=== PATIENT | male | born 1975 | race Caucasian/White ===

== ENCOUNTER 2019-06-05 02:02 | Inpatient (IN) ==
[2019-06-05] MEDS ORDERED: SODIUM CHLORIDE 0.9% 1000ML 1,000 ML IV ONE (02:19)
[2019-06-05] MEDS ORDERED: ASPIRIN 81 MG CHEW PO STA (02:19)
[2019-06-05] MEDS ORDERED: fentaNYL citrate 100 MCG/2 ML VIAL IV STA (02:19)
[2019-06-05 02:37] LABS: Basophils # (auto) 0.01 K/uL (0-0.2); Basophils % (auto) 0.2 %; Eosinophils # (auto) 0.01 K/uL (0-0.5); Eosinophils % (auto) 0.2 %; Hematocrit (blood only) 43.4 % (42-52); Hemoglobin 15.8 g/dL (14.0-18.0); Immature Granulocytes # (auto) 0.02 K/uL (0.00-0.02); Immature Granulocytes % (auto) 0.3 %; Lymphocytes # (auto) 1.03 K/uL (1.2-3.4); Lymphocytes % (auto) 15.5 %; Mean Corpuscular Hemoglobin 31.2 pg (25-34); Mean Corpuscular Hgb Conc 36.4 g/dL (32-36); Mean Corpuscular Volume 85.8 fL (80-100); Mean Platelet Volume 10.2 fL (7.4-10.4); Monocytes # (auto) 0.85 K/uL (0.11-0.59); Monocytes % (auto) 12.8 %; Neutrophils # (auto) 4.72 K/uL (1.4-6.5); Platelet Count 193 K/uL (130-400); RDW Coefficient of Variation 12.7 % (11.5-14.5); RDW Standard Deviation 39.3 fL (36.4-46.3); Red Blood Count 5.06 M/uL (4.7-6.1); White Blood Count 6.64 K/uL (4.8-10.8)
[2019-06-05 02:47] LABS: Prothrombin Time 10.6 Seconds (9.0-12.0)
[2019-06-05] MEDS ORDERED: LABETALOL HCL IV 5 MG/ML 20ML IV STA (02:57)
[2019-06-05] MEDS ORDERED: LABETALOL HCL IV 5 MG/ML 20ML IV ONE (02:58)
[2019-06-05 03:03] LABS: BUN Creatinine Ratio 16.3 (10-20); Calcium 9.1 mg/dl (8.5-10.1); Creatinine Clr Calc Pharmacy 100.8 ml/min; Est GFR (African American) 94.5; Est GFR (Non-African American) 81.5; Magnesium 2.5 mg/dl (1.8-2.4); Potassium 3.4 mmol/L (3.5-5.1)
[2019-06-05 03:05] LABS: Partial Thromboplastin Ratio 1.1; Partial Thromboplastin Time 28.9 Seconds (21.0-31.0)
[2019-06-05] MEDS ORDERED: HEPARIN (PORCINE) 1000 UNIT/ML 10 ML (CATH LAB USE ONLY) ONE (03:05)
[2019-06-05] MEDS ORDERED: NiCARDipine HCL INJ 2.5 MG/ML 10 ML AMP ONE (03:05)
[2019-06-05] MEDS ORDERED: NITROGLYCERIN/D5W 100MCG/ML 20ML SYR ONE (03:06)
[2019-06-05] MEDS ORDERED: fentaNYL citrate 100 MCG/2 ML VIAL ONE (03:06)
[2019-06-05] MEDS ORDERED: MIDAZOLAM HCL 1 MG/ML 2ML VIAL ONE (03:06)
[2019-06-05 03:10] LABS: D Dimer 890 ug/L FEU (0-500)
--- NOTE | 2019-06-05 04:02 | Cardiology Consultation ---
Date of Consultation June 05, 2019 Assessment & Plan (1) Elevated troponin: Patient here with 24 hours of persistent chest pain preceded by viral symptoms. EKG most consistent with pericarditis but troponin significantly elevated to 58 raising concern for myopericarditis versus ACS. We will plan to proceed with cardiac catheterization to rule out obstructive CAD. Discussed risk, benefits, alternatives of procedure with patient and willing to proceed. Further recommendations pending findings of catheterization. History of Present Illness Attending Physician: Rocky Garcia MD History of Present Illness Mr. Martinez is a 44-year-old man with no significant past medical history who presented to [facility] with approximately 24 hours of substernal chest pain. Pain was preceded by 2 days of URI/"flu" symptoms which have since improved. Pain persistent, unchanged over 24 hours. Came to ED tonight because was unable to sleep due to pain. Denies associated shortness of breath, palpitations or presyncope. No pleuritic component, no change with position. States more notable when at rest and with exertion. In ED was hemodynamically stable. Pain improved with nitroglycerin, fentanyl. Initial EKG with anterior lateral ST elevations, subtle IN depressions, no reciprocal changes. Heart alert activated after initial troponin positive at 58. Allergies Allergy/AdvReac Type Severity Reaction Status Date / Time No Known Allergies Allergy Unverified 06/05/19 02:40 Home Medications Home Medications Medication Instructions Recorded Confirmed Type No Known Home Medications 06/05/19 06/05/19 History Patient History Medical History (Updated 06/05/19 @ 03:57 by Fredo Garcia MD) No chronic problems Family History (Updated 06/05/19 @ 02:19 by Fer Escobedo) Other Family history of hyperlipidemia Social History (Updated 06/05/19 @ 02:19 by Fer Escobedo) Preferred Language: Haitian Current Living Situation: Family current occupational status: employed Feels Safe at Home: Yes Smoking Status: Never smoker Hx Alcohol Use: No Review of Systems Review of Systems: All systems reviewed & are unremarkable except as noted in HPI & below Physical Exam Physical Exam: General: Comfortable, no acute distress Eyes: Sclerae anicteric, extraocular movements intact HENT: Oropharynx clear mucous membranes moist Lungs: Clear to auscultation bilaterally, no rhonchi or wheezes Cardiac: Regular rate and rhythm, no murmurs, rubs or gallops. Vascular: 2+ radial, DP and PT pulses. No varicosities. Abdomen: Soft, nontender, nondistended, positive bowel sounds. Extremities: Well perfused, no peripheral edema Skin: No rashes or lesions. Neuro: Nonfocal Psych: Alert orient x3, normal affect and mood Results & Data Vital Signs (Past 12 Hours) Vital Signs Temp Pulse Resp BP Pulse Ox 06/05/19 02:45 91 H 18 147/105 H 95 06/05/19 02:44 94 H 14 146/109 H 95 06/05/19 02:30 78 14 138/103 H 100 06/05/19 02:29 82 16 136/103 H 99 06/05/19 02:07 98.4 F 84 20 142/113 H 98 PG Care Time/CCT Total # of Minutes Spent Total Time Spent with Patient: Total time spent is greater than 50% in coordination of care (as documented) at patient's floor/unit and/or counseling patient:
--- NOTE | 2019-06-05 04:03 | Post Anesthesia Assessment ---
Date of Service June 05, 2019 Post Sedation Assessment Vital Signs Temp Pulse Resp BP Pulse Ox 06/05/19 02:45 91 H 18 147/105 H 95 06/05/19 02:44 94 H 14 146/109 H 95 06/05/19 02:30 78 14 138/103 H 100 06/05/19 02:29 82 16 136/103 H 99 06/05/19 02:07 98.4 F 84 20 142/113 H 98 Recovery Score Activity: Moves 4 extremities Respiration: Deep Breath/Cough Circulation: +/-20% PreAnes Value Consciousness: Fully Awake Oxygen Saturation: O2 needed for >90% Discharge Sedation Level of Care: Fast Track Phase II Post Sedation Plan On clinical assessment, the patient appears to have tolerated the sedation without complications. Patient is recovering as anticipated. Patient will continue to be monitored by nursing and may be discharged when sedation discharge criteria are met per below protocol. Upon Completions of procedure up to 15 minutes continue every 5 minute vital signs and the P.A.R. score; then discharge to a Phase I or Fast Track to Phase II per the following guidelines: * Discharge Patient to appropriate Phase II area if PAR is 8 or greater or return to pre- procedure baseline. The post - procedure orders will be as directed. * If PAR score is less than 8 or not return to pre-procedure baseline then patient will follow Phase I monitoring till PAR is reached for Phase II. The Phase I may be done in procedure room or may call to secure a Phase I area. * If naloxone or flumazenil are used for reversal, hold in Phase I for continued monitoring from when last reversal dose was given for a minimum of 60 minutes or longer pending the nurse and/or physician discretion of patient condition before discharge to Phase II. Please call the Sedation Physician to re-evaluate and complete post-note for discharge to Phase II area. Do NOT discharge from procedure sedation or Phase 1 until post- sedation evaluation note is complete by procedure /sedation MD Sedation Discharge Instructions to be given to the patient at discharge to home.
--- NOTE | 2019-06-05 04:03 | Pre Anesthesia Assessment ---
Date of Service June 05, 2019 Pre Sedation Assessment Vital Signs Temp Pulse Resp BP Pulse Ox 06/05/19 02:45 91 H 18 147/105 H 95 06/05/19 02:44 94 H 14 146/109 H 95 06/05/19 02:30 78 14 138/103 H 100 06/05/19 02:29 82 16 136/103 H 99 06/05/19 02:07 98.4 F 84 20 142/113 H 98 Cardiovascular RRR, no murmur, no edema Respiratory normal respiratory effort, lungs clear to auscultation Pre-Sedation Airway Assessment Smoking Status: Never smoker Hx Sleep Apnea: No Hx Difficult Intubation: No Short, Thick Neck: No Thyromental Distance: > or= 3.5 Finger Breadths Oral Cavity: + WNL Mallampati Class: III ASA: ASA3 Procedure Planning Contraindications for Sedation: none Current Medications Reviewed: Yes Notes The planned sedation has been discussed with the patient. Informed Consent was obtained. I have identified the patient, determined the appropriateness of sedation and have assessed the patient immediately prior to the procedure. All medicine(s) and interventions are by my order.
--- NOTE | 2019-06-05 04:17 | Cardiac Catheterization ---
[facility] Data: Manufacturing Advisor Cardiac Status Clinical evaluation leading to the procedure CAD Presenation: Sx unlikely to be ischemic Anginal Classification: CCS IV Heart Failure: No Cardiogenic Shock within 24 Hours: No Cardiac Arrest within 24 Hours: No Imaging Studies Past 6 Months: No Stress Studies Past 6 Months: No Diagnostic Physicians Name: Rocky Garcia MD Status: Urgent Closure Device Percutaneous Entry Location: Radial Closure Device: Radial Band Recommendations: Medical Therapy and/or Counseling Intraprocedure Events Significant Disection: No Perforation: No Cardiac Cath Procedure Full Procedure Date June 05, 2019 Pre-Procedure Diagnosis Pre-Procedure Diagnosis: Acute Coronary Syndrome AUC Score AUC Score: 8 Post-Procedure Diagnosis Post-Procedure Diagnosis: Mild CAD and Elevated Intracardiac Pressures Procedure(s) Performed Procedure(s) Performed: Coronary Angiography and Left Heart Cath Database Administration Manager Rocky Garcia MD Weight Checker(s) Fern Estimated Blood Loss Estimated Blood Loss: 5 Medication(s) Medication(s): Fentanyl, Heparin, Lidocaine 1%, Nicardipine, Nitroglycerin and Versed Summary of Findings Indication: Suspected ACS versus myopericarditis Access: 6 Fr slender right radial artery Catheters: [place] Findings: LM -large caliber, angiographically normal LAD -large caliber, mid segment luminal irregularities with some myocardial bridging, distal vessel wraps around apex. First and second diagonal without significant disease. Circumflex -large caliber vessel without significant disease RCA -dominant, large caliber vessel, angiographically normal LVEDP -23 Arterial Closure: TR band Summary: 1. Essentially normal coronary arteries 2. Elevated intracardiac filling pressure Recommendations: Presentation consistent with perimyocarditis with likely some component of LV dysfunction, mild acute heart failure. Admit to telemetry Trend troponin until peak Echocardiogram in a.m. Plan to start beta-lizzy for suspected LV dysfunction. Add ALEX as BP allows Gentle diuretics as needed Start colchicine, low-dose NSAIDs for pain control. Hemodynamics Rest Ao:: 128/96/109 Final Ao: 122/87/106 LV: 117/23 Recommendations Recommendations: Medical Therapy and/or Counseling Specimens Specimens: None Radiation Exposure (mGy) 902 Contrast (mls) 60 Fluids (cc crystalloids) Fluids (cc crystalloids): 50 Drains Drains: none Anesthesia moderate Procedural Complication(s) None Disposition PCU I attest to the content of the Intraoperative Record and any orders documented therein. Any exceptions are noted below. [facility] Card Cath Procedure Codes Cardiac Catheterization Procedure 1: Cardiovascular Cath Procedures: 00742 Coronaries and LHC (+/-LV) Moderate Sedation Procedure 1: Sedation/Anesthesia: 46545 Mod Sedation by the same physician;Init15 Min Child Age 5 & Up PG Care Time/CCT Total # of Minutes Spent Total Time Spent with Patient: Total time spent is greater than 50% in coordination of care (as documented) at patient's floor/unit and/or counseling patient:
[2019-06-05] MEDS ORDERED: POTASSIUM CHLORIDE 20 MEQ TABCR PO STA (04:20)
[2019-06-05] MEDS ORDERED: ONDANSETRON INJ 2 MG/ML 2 ML VIAL IV PRN (04:20)
[2019-06-05] MEDS ORDERED: ACETAMINOPHEN 325 MG TAB PO PRN (04:20)
[2019-06-05] MEDS ORDERED: SODIUM CHLORIDE 0.9% 1000ML 1,000 ML IV SCH (04:30)
--- NOTE | 2019-06-05 04:42 | Emergency Department Note ---
Entered by Fer Escobedo acting as a scribe for ED Provider Note Name: Kaveh Martinez Age: 44 Arrives Via: Walk in Informant: Patient CC: Chest pain HPI: The patient is a 44 year old male who presents to the emergency department with complaints of center chest pain beginning just over 24 hours ago. The patient states that he was either at home or working when his pain started. He notes that his pain does not radiate anywhere, and he reports that his pain is worse when he does not do anything. The patient states that he can feel his heart thumping. He notes that he did not take anything for his pain. He reports that he is just getting over a stomach bug. The patient denies any personal or family medical problems. The patient denies any LOC, nausea, and change in diet/exercise. ROS: See above HPI for pertinent positives & negatives. A total of 10 systems reviewed and were otherwise negative. Past Medical History: None Past Surgical History: None Family History: Hyperlipidemia Social History: Employed, lives with family, does not use cigarettes, does not drink alcohol Home Medications: None Allergies: None Physical: Vitals: BP 142/113, Pulse 84, Resp 20, Temp 98.4 F, O2 Sat 98 Exam: GENERAL: Patient is uncomfortable appearing and in moderate distress. EYES: No scleral icterus, unremarkable pupils. ENT: Mucous membranes moist, no nasal congestion. NECK: No masses appreciated, no meningismus, trachea is midline. RESPIRATORY: No dyspnea. Clear to auscultation and equal bilaterally. No wheeze, no rhonchi. CARDIOVASCULAR: Regular rate and rhythm. No murmurs, rubs, gallops appreciated. GASTROINTESTINAL: Abdomen soft, non-tender, no peritonitis. Bowel sounds positive. No masses appreciated. BACK: No midline tenderness, no CVA tenderness EXTREMITIES: Normal motion all extremities, no cyanosis, no edema. NEUROLOGIC: Alert and oriented, no acute motor or sensory deficits, no focal weakness, cranial nerves grossly intact. SKIN: No rash, no jaundice. Diaphoretic. ED Course: Prior Medical Record, Triage/Nursing Notes, Medications, Allergies reviewed by Me 0212: The patient was evaluated in room B2. A complete history and physical exam was performed. 0222: The parking worker unix analyst was paged. 0228: I discussed the patient's case with Dr. Garcia - Cardiology, [facility]. He agrees that the morphology of the patient's EKG seems similar to pericarditis. He feels that if the patient's troponin is negative, then to hold off on the heart alert, but he suggests calling a heart alert if the patient's troponin is positive. 0234: A heart alert was called due to the patient's elevated troponin. 0236: I rechecked the patient. He is feeling better after fentanyl. 0244: The patient feels much better and is comfortable with the plan. 0257: I rechecked the patient. His blood pressure is starting to come up and his pain is mild currently. Labetalol was ordered for his blood pressure. 0311: Upon reevaluation, the patient is stable. I discussed the findings and the treatment plan with the patient. He expresses agreement and understanding. The patient was taken to the catholic priest. Vital Signs: reviewed and remarkable for HTN Labs: Reviewed and remarkable for +troponin, elevated ck/ckmb Interventions: saline lock, fentanyl 75mcg IV, asa 324mg PO, labetalol IV Imaging: CHEST X-RAY: X ray results are stated below per my interpretation: Chest: 1 view: No infiltrate, no effusion, normal cardiac border. EKG: Per My Interpretation: Indication Chest Pain: NSR 86 bpm, qtc 430. No Ectopy. Diffuse anterio/lateral ST elevations. Faint III ST depression. There are no previous EKGs for comparison Consults: 0228: I discussed the patient's case with Dr. Garcia - Cardiology, [facility] [place]. He agrees that the morphology of the patient's EKG seems similar to pericarditis. He feels that if the patient's troponin is negative, then to hold off on the heart alert, but he suggests calling a heart alert if the patient's troponin is positive. Blood pressure: Elevated - Referred to patient's PCP. Disposition: Taken to catholic priest Differential: Cardiac Ischemia (STEMI, NSTEMI, Unstable Angina, etc), Aortic Dissection, Arrhythmia, Pulmonary Embolism, Pneumonia, Pneumothorax, MSK, Infectious, Pericarditis/Myocarditis, Esophageal Rupture, Gastrointestinal, amongst other pathologies entertained. Medical Decision Makin yr old male with no PMH arrives with 24 hours of substernal chest pain following URI symptoms a few days earlier. He has position chest pain but no significant GERBER/CP on exertion. He has no evidence of dissection by exam. EKG with ant/lat ST elevations. These are consistent with myopericarditis though there is mild III ST depression in EKG. Reviewed with Cards and given severe elevation of Trop will take to catholic priest for further evaluation. Feeling better with fentanyl. Small dose Labetalol for mildly elevated BP. Will presume this is myocarditis secondary to recent viral infection, however given pain, patients age, elevated trop levels and borderline EKG will rule out ACS through cath. Patient is not septic without fever nor wbc elevation. I do not feel this is PE/Dissection and Dimer likely elevated secondary to cardiac inflammation. Impression: Myocarditis Elevated Troponin Chest Pain ST Elevation Critical Care Time: I have personally spent 45 minutes of critical care time in the direct management of this patient. Acute STEMI EKG with elevated trop that required emergent transfer to catholic priest. This was a life/limb threatening event. This 45 minutes is in excess of all separately billable procedures. Juan Morrow MD The scribe's documentation has been prepared under my direction and personally reviewed by me in its entirety. I confirm that the note above accurately reflects all work, treatment, procedures, and medical decision making performed by me. Impression & Plan Myocarditis, Elevated troponin, Chest pain, ST elevation Past Med/Surg History Medical History (Updated 06/05/19 @ 04:36 by Juan Morrow MD) No chronic problems Family History (Updated 06/05/19 @ 02:19 by Fer Escobedo) Other Family history of hyperlipidemia Social History (Updated 06/05/19 @ 02:19 by Fer Escobedo) Preferred Language: Moroccan Current Living Situation: Family current occupational status: employed Feels Safe at Home: Yes Smoking Status: Never smoker Hx Alcohol Use: No Results & Data Vital Signs Vital Signs - 24 hr 06/05/19 02:07 06/05/19 02:29 06/05/19 02:30 Temperature 36.9 C Temperature Source Oral Pulse Rate 84 82 78 Pulse Rate from SpO2 Sensor 72 78 Respiratory Rate 20 16 14 Respiratory Depth Normal Blood Pressure 142/113 H 136/103 H 138/103 H Blood Pressure Mean 122 114 114 Pulse Oximetry 98 99 100 Oxygen Delivery Method Room Air Sepsis Recent Fever Within 48 Hours No Sepsis New/Unexplained Change in Mental Status No Sepsis Action Taken by Nursing No Action Required 06/05/19 02:44 01/21/20 02:45 Temperature Temperature Source Pulse Rate 94 H 91 H Pulse Rate from SpO2 Sensor 94 H 92 H Respiratory Rate 14 18 Respiratory Depth Blood Pressure 146/109 H 147/105 H Blood Pressure Mean 118 122 Pulse Oximetry 95 95 Oxygen Delivery Method Sepsis Recent Fever Within 48 Hours Sepsis New/Unexplained Change in Mental Status Sepsis Action Taken by Shelter Medications Current Medication List: was personally reviewed by me Laboratory Data Attestation: I reviewed the patient's lab results. Result diagrams: 06/05/19 02:22 06/05/19 02:22 Lab Results 06/05/19 06/05/19 06/05/19 Range/Units 02:20 02:22 02:22 WBC 6.64 (4.8-10.8) K/uL RBC 5.06 (4.7-6.1) M/uL Hgb 15.8 (14.0-18.0) g/dL Hct 43.4 (42-52) % MCV 85.8 (80-100) fL MCH 31.2 (25-34) pg MCHC 36.4 H (32-36) g/dL RDW Std Deviation 39.3 (36.4-46.3) fL RDW Coeff of Truong 12.7 (11.5-14.5) % Plt Count 193 (130-400) K/uL MPV 10.2 (7.4-10.4) fL Immature Gran % (Auto) 0.3 % Neut % (Auto) 71.0 % Lymph % (Auto) 15.5 % [place] % (Auto) 12.8 % Eos % (Auto) 0.2 % Baso % (Auto) 0.2 % Immature Gran # (Auto) 0.02 (0.00-0.02) K/uL Neut # (Auto) 4.72 (1.4-6.5) K/uL Lymph # (Auto) 1.03 L (1.2-3.4) K/uL [place] # (Auto) 0.85 H (0.11-0.59) K/uL Eos # (Auto) 0.01 (0-0.5) K/uL Baso # (Auto) 0.01 (0-0.2) K/uL PT 10.6 (9.0-12.0) Seconds INR 1.0 (0.9-1.1) APTT 28.9 (21.0-31.0) Seconds PTT Ratio 1.1 D-Dimer 890 H* (0-500) ug/L FEU Sodium (136-145) mmol/L Potassium (3.5-5.1) mmol/L Chloride (98-107) mmol/L Carbon Dioxide (21-32) mmol/L Anion Gap (3-11) BUN (7-18) mg/dl Creatinine (0.6-1.4) mg/dl Est Cr Clr Drug Dosing ml/min Est GFR ( Amer) Est GFR (Non-Af Amer) BUN/Creatinine Ratio (10-20) Glucose (70-99) mg/dl Calcium (8.5-10.1) mg/dl Magnesium (1.8-2.4) mg/dl Total Creatine Kinase (39-308) U/L CK-MB (CK-2) (0.5-3.6) ng/ml CK/CKMB % Calc (0-3.0) POC Troponin I 34.79 H (0-0.045) ng/ml Troponin I (0-0.045) ng/ml Blood Type Antibody Screen 06/05/19 06/05/19 Range/Units 02:22 02:50 WBC (4.8-10.8) K/uL RBC (4.7-6.1) M/uL Hgb (14.0-18.0) g/dL Hct (42-52) % MCV (80-100) fL MCH (25-34) pg MCHC (32-36) g/dL RDW Std Deviation (36.4-46.3) fL RDW Coeff of Truong (11.5-14.5) % Plt Count (130-400) K/uL MPV (7.4-10.4) fL Immature Gran % (Auto) % Neut % (Auto) % Lymph % (Auto) % [place] % (Auto) % Eos % (Auto) % Baso % (Auto) % Immature Gran # (Auto) (0.00-0.02) K/uL Neut # (Auto) (1.4-6.5) K/uL Lymph # (Auto) (1.2-3.4) K/uL [place] # (Auto) (0.11-0.59) K/uL Eos # (Auto) (0-0.5) K/uL Baso # (Auto) (0-0.2) K/uL PT (9.0-12.0) Seconds INR (0.9-1.1) APTT (21.0-31.0) Seconds PTT Ratio D-Dimer (0-500) ug/L FEU Sodium 136 (136-145) mmol/L Potassium 3.4 L (3.5-5.1) mmol/L Chloride 105 (98-107) mmol/L Carbon Dioxide 26 (21-32) mmol/L Anion Gap 5.0 (3-11) BUN 18 (7-18) mg/dl Creatinine 1.09 (0.6-1.4) mg/dl Est Cr Clr Drug Dosing 100.8 ml/min Est GFR ( Amer) 94.5 Est GFR (Non-Af Amer) 81.5 BUN/Creatinine Ratio 16.3 (10-20) Glucose 111 H (70-99) mg/dl Calcium 9.1 (8.5-10.1) mg/dl Magnesium 2.5 H (1.8-2.4) mg/dl Total Creatine Kinase 2108 H (39-308) U/L CK-MB (CK-2) 206.0 H (0.5-3.6) ng/ml CK/CKMB % Calc 9.8 H (0-3.0) POC Troponin I (0-0.045) ng/ml Troponin I 58.000 H* (0-0.045) ng/ml Blood Type O Positive Antibody Screen NEGATIVE Administered Medications Discontinued Medications Aspirin (Aspirin Chew) 324 mg PO NOW STA Stop: 06/05/19 02:20 Last Admin: 06/05/19 02:29 Dose: 324 mg Documented by: [id number] Fentanyl Citrate (Fentanyl Citrate) 75 mcg IV NOW STA Stop: 06/05/19 02:20 Last Admin: 06/05/19 02:29 Dose: 75 mcg Documented by: [id number] Fentanyl Citrate (Fentanyl Citrate) Confirm Administered Dose 100 mcg .ROUTE .STSignNow-MED ONE Stop: 06/05/19 03:07 Last Increment: 06/05/19 03:51 Dose: 50 mcg Documented by: [id number] Heparin Sodium (Porcine) (Heparin Iv Bolus (Diesel Inspector Use Only)) Confirm Administered Dose 10,000 units .ROUTE .STK-MED ONE Stop: 06/05/19 03:06 Last Admin: 06/05/19 03:50 Dose: 5,000 units Documented by: [id number] Heparin Sodium/Sodium Chloride (Heparin/Nss 1000 Unit/500ml Flush Bag) Confirm Administered Dose 3,000 units IV .STK-MED ONE Stop: 06/05/19 03:07 Last Admin: 06/05/19 03:51 Dose: 3,000 units Documented by: [id number] Sodium Chloride (Nss 1000ml) 1,000 mls @ 999 mls/hr IV .Q1H1M ONE Stop: 06/05/19 03:19 Last Admin: 06/05/19 02:31 Dose: 999 mls/hr Documented by: [id number] Labetalol HCl (Normodyne) 5 mg IV NOW STA Stop: 06/05/19 02:58 Last Admin: 06/05/19 03:01 Dose: 2.5 mg Documented by: [id number] Cosigned by: [id number] Labetalol HCl (Normodyne) Confirm Administered Dose 5 mg IV .STK-MED ONE Stop: 06/05/19 02:59 Last Admin: 06/05/19 03:01 Dose: Not Given Documented by: [id number] Midazolam HCl (Versed) Confirm Administered Dose 2 mg .ROUTE .STK-MED ONE Stop: 06/05/19 03:07 Last Increment: 06/05/19 03:51 Dose: 1 mg Documented by: [id number] Nicardipine HCl (Cardene) Confirm Administered Dose 25 mg .ROUTE .STK-MED ONE Stop: 06/05/19 03:06 Last Admin: 06/05/19 03:50 Dose: 25 mg Documented by: [id number] Nitroglycerin/Dextrose (Nitroglycerin/D5w 100 Mcg/Ml 20ml Syringe) Confirm Administered Dose 2,000 mcg .ROUTE .STK-MED ONE Stop: 06/05/19 03:07 Last Admin: 06/05/19 03:51 Dose: 2,000 mcg Documented by: [id number] Discharge Plan Visit Data *Final* Discharge Date/Time: 06/05/19 03:13 Chief Complaint: Chest Pain Stated Complaint: CHEST PAIN ED Provider: Juan Morrow Discharge Problem: Myocarditis, Elevated troponin, Chest pain, ST elevation Patient Disposition: Still a Patient Discharge Instructions Interventions: ED Discharge Assessment Last Done: 06/05/19 03:13 Discharge Problem: Myocarditis Qualifiers: Myocarditis type: infective Infective myocarditis organism: viral Chronicity: acute Qualified Code(s): I40.0 - Infective myocarditis Chest pain Qualifiers: Chest pain type: chest pain due to myocardial ischemia Ischemic chest pain type: other angina pectoris type Qualified Code(s): I20.8 - Other forms of angina pectoris The scribe's documentation has been prepared under my direction and personally reviewed by me in its entirety. I confirm that the note above accurately reflects all work, treatment, procedures, and medical decision making performed by me.
--- NOTE | 2019-06-05 04:56 | History & Physical Report ---
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 Presentation likely 2/2 pericarditis. Pericarditis -Admit to telemetry -EKG: Diffuse anterolateral ST elevations -daily EKG -Cath Report: Essentially normal coronary arteries. Elevated intracardiac filling pressure -Initial Trop 58. Cont trend q6h until peak -ECHO Pending -Cont medical mangement with ASA 325 mg, Colchicine 0.6 mg daily . Will likely need to be adjusted to BID dosing moving forward -Consider adding glucocorticoids moving forward if refractory pericarditis -NG SL prn for CP -Restriction from strenuous activity -likely viral etiology (Panel including Coxsackieviruses, Adenovirus, CMV, EBV, Echovirus, Influenza, Hepatitis C, Parvovirus ordered) -Uric Acid level pending -Lipid Panel, A1C in AM -Appreciate Cardiology Consult Suspected LV Dysfunction -Cont Metoprolol Tartrate 12.5 mg BID. Add ACEi moving forward once BP more stable -ECHO pending FEN/GI: HH Diet DVT Prophylaxis: SCD's. Low Risk per admission calculator. Full Code Dispo: PCU Tele History of Present Illness Chief Complaint: cp Primary Care Provider: NO PCP 44 yo M with no significant PMH presents to [facility] with complaints of substernal CP for 24 hr duration. Presents given his inability to sleep from pain. Previously had 2 day h/o URI sxs, since resolved. Pain described as constant. 5/10. Nonradiating. Not alleviated or exacerbated by any particular position. Worse with exertion. Interestingly also worse by sitting still. 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 Pt otherwise denies SOB, palpitations, syncope or presyncope, edema. F/N/V/D. Pt with no other acute concerns or complaints. In ED, pt given NG, fentanyl 75mcg IV, ASA 324mg PO, labetalol IV, with noted improvement in sxs. EKG: Diffuse lynette/lateral ST elevations. No previous EKG's for comparison. Pertinent Labs: D-Dimer 890. K 3.4. CK 2108. Initial trop 58. Heart alert was called overhead and Dr. Garcia alerted and pt taken into [facility] to r/o ACS. Cath Report: Essentially normal coronary arteries. Elevated intracardiac filling pressure. Pt pain 2/5 after cath procedure. Family Hx: HLD-Father. No significant FHx of other cardiac issues. Social: Denies Tobacco, Alcohol, Illicit Drug use. Surgical Hx: None Allergies Allergy/AdvReac Type Severity Reaction Status Date / Time No Known Allergies Allergy Unverified 06/05/19 02:40 Home Medications Home Medications Medication Instructions Recorded Confirmed Type No Known Home Medications 06/05/19 06/05/19 History colchicine [Colcrys] 0.6 mg PO BID 30 Days #60 tab 06/06/19 Rx ibuprofen 600 mg PO BID #30 tab 06/06/19 Rx metoprolol succinate [Toprol XL] 25 mg PO DAILY #30 tab 06/06/19 Rx tramadol 50 mg PO Q4H PRN #30 tab 06/06/19 Rx Past Med/Surg History Medical History (Updated 06/07/19 @ 00:04 by Kaitlynn Claros) No chronic problems Family History (Updated 06/05/19 @ 02:19 by Fer Escobedo) Other Family history of hyperlipidemia Social History (Updated 06/05/19 @ 02:19 by Fer Escobedo) Preferred Language: Kenyan Communication Ability: Effective 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 Beliefs That Will Affect Care: None Current Living Situation: Alone current occupational status: employed Feels Safe at Home: Yes Smoking Status: Never smoker Hx Alcohol Use: No Hx Substance Use: No Review of Systems Review of Systems: All systems reviewed & are unremarkable except as noted in HPI & below Physical Exam Constitutional: WD/WN, vitals as above Eyes: PERRL, conjunctivae normal, anicteric sclerae ENMT: external ear and nose normal, oropharynx normal Respiratory: normal respiratory effort, lungs clear to auscultation Cardiovascular: RRR, no murmur, no edema Gastrointestinal (Abdomen): normal bowel sounds, soft, nontender, no hepatosplenomegaly Skin: no rashes, warm and dry Psychiatric: A+Ox3, euthymic affect Results & Data Vital Signs (Past 12 Hours) Vital Signs Temp Pulse Pulse Resp BP BP Pulse Ox 06/05/19 04:47 85 06/05/19 04:35 36.4 C L 82 18 112/82 95 06/05/19 04:20 36.7 C 82 18 115/80 96 06/05/19 02:45 91 H 18 147/105 H 95 06/05/19 02:44 94 H 14 146/109 H 95 06/05/19 02:30 78 14 138/103 H 100 06/05/19 02:29 82 16 136/103 H 99 06/05/19 02:07 36.9 C 84 20 142/113 H 98 Laboratory Results Laboratory Results - last 24 hr 06/05/19 06/05/19 06/05/19 02:20 02:22 02:22 WBC 6.64 RBC 5.06 Hgb 15.8 Hct 43.4 MCV 85.8 MCH 31.2 MCHC 36.4 H RDW Std Deviation 39.3 RDW Coeff of Truong 12.7 Plt Count 193 MPV 10.2 Immature Gran % (Auto) 0.3 Neut % (Auto) 71.0 Lymph % (Auto) 15.5 [place] % (Auto) 12.8 Eos % (Auto) 0.2 Baso % (Auto) 0.2 Immature Gran # (Auto) 0.02 Neut # (Auto) 4.72 Lymph # (Auto) 1.03 L [place] # (Auto) 0.85 H Eos # (Auto) 0.01 Baso # (Auto) 0.01 PT 10.6 INR 1.0 APTT 28.9 PTT Ratio 1.1 D-Dimer 890 H* Sodium Potassium Chloride Carbon Dioxide Anion Gap BUN Creatinine Est Cr Clr Drug Dosing Est GFR ( Amer) Est GFR (Non-Af Amer) BUN/Creatinine Ratio Glucose Calcium Magnesium Total Creatine Kinase CK-MB (CK-2) CK/CKMB % Calc POC Troponin I 34.79 H Troponin I Blood Type Antibody Screen 06/05/19 06/05/19 02:22 02:50 WBC RBC Hgb Hct MCV MCH MCHC RDW Std Deviation RDW Coeff of Truong Plt Count MPV Immature Gran % (Auto) Neut % (Auto) Lymph % (Auto) [place] % (Auto) Eos % (Auto) Baso % (Auto) Immature Gran # (Auto) Neut # (Auto) Lymph # (Auto) [place] # (Auto) Eos # (Auto) Baso # (Auto) PT INR APTT PTT Ratio D-Dimer Sodium 136 Potassium 3.4 L Chloride 105 Carbon Dioxide 26 Anion Gap 5.0 BUN 18 Creatinine 1.09 Est Cr Clr Drug Dosing 100.8 Est GFR ( Amer) 94.5 Est GFR (Non-Af Amer) 81.5 BUN/Creatinine Ratio 16.3 Glucose 111 H Calcium 9.1 Magnesium 2.5 H Total Creatine Kinase 2108 H CK-MB (CK-2) 206.0 H CK/CKMB % Calc 9.8 H POC Troponin I Troponin I 58.000 H* Blood Type O Positive Antibody Screen NEGATIVE Medications Administered Current Inpatient Medications Acetaminophen (Tylenol) 650 mg PO Q4H PRN PRN Reason: Mild Pain (scale 1-3) Stop: 07/05/19 04:19 Aspirin (Ecotrin) 325 mg PO QAM [facility] Stop: 07/06/19 08:59 Colchicine (Colcrys) 0.6 mg PO QAM [facility] Stop: 07/05/19 08:59 Sodium Chloride (Nss 1000ml) 1,000 mls @ 75 mls/hr IV .[id number] [facility] Stop: 06/05/19 07:49 Last Admin: 06/05/19 04:39 Dose: 75 mls/hr Documented by: Influenza Virus Vaccine Quadrival (Flucelvax Quad Vaccine) 0.5 ml IM .ONCE ONE Stop: 06/05/19 05:05 Metoprolol Tartrate (Lopressor) 12.5 mg PO BID [facility] Stop: 07/05/19 08:59 Ondansetron HCl (Zofran) 4 mg IV Q6H PRN PRN Reason: Nausea And Vomiting Stop: 07/05/19 04:19 Code Status & VTE Plan VTE Prophylaxis Plan VTE Prophylaxis will be ordered: Yes Supervising Physician Co-Signing Physician Notes Attending addendum: I have physically seen this patient, have supervised the medical residents activities, and agree with the H&P unless as otherwise noted. Assessment and Plan: Myopericarditis- The patient will be admitted to telemetry for serial cardiac enzymes, serial EKG's, cardiac rhythm monitoring and a 2-D echocardiogram with Dopplers. Troponin upon admission 58. Aspirin 325 mg p.o. twice daily. Colchicine 0.6 mg p.o. twice daily. Viral panel ordered Consult cardiology. Remaining orders and notations as noted. Resident Activity Tracking Resident Involvement: Resident Care Provided Care Provided: Adult [facility] Medicine (1) Myocarditis Chronicity: acute Infective myocarditis organism: viral Myocarditis type: infective Qualified Code(s): I40.0 - Infective myocarditis
[2019-06-05] MEDS ORDERED: INFLUENZA ADMINISTRATION CHARGE ONE (05:04)
[2019-06-05] MEDS ORDERED: INFLUENZA VIRUS QUAD VACCINE 0.5 ML SYR IM ONE (05:04)
[2019-06-05] MEDS ORDERED: NITROGLYCERIN SL 0.4 MG/TAB TAB SL PRN (05:50)
[2019-06-05 06:37] LABS: Estimated Average Glucose 100 mg/dl; Hemoglobin A1C 5.1 % (4.5-5.6)
--- NOTE | 2019-06-05 06:45 | XRay Report ---
XR chest 1V portable CLINICAL HISTORY: 44 years-old Male presenting with Chest pain. TECHNIQUE: Portable upright AP view of the chest was obtained. COMPARISON: None. FINDINGS: Cardiomediastinal silhouette normal. No focal opacity. No large effusion or pneumothorax. Osseous str uctures normal. Upper abdomen normal. IMPRESSION: 1. No acute cardiopulmonary disease. ACT 112: Negative or not required by law. Electronically signed by: Oniel Bustillos M.D. 06/05/2019 6:44 AM
[2019-06-05 07:35] LABS: C Reactive Protein 9.73 mg/dl (0-0.29); Uric Acid 5.4 mg/dl (2.6-7.2)
[2019-06-05] MEDS: METOPROLOL TARTRATE 25 MG TAB PO SCH ×2 (08:19→21:17)
[2019-06-05] MEDS: COLCHICINE 0.6 MG TAB PO SCH (08:19)
--- NOTE | 2019-06-05 12:25 | Cardiology Progress Note ---
Date of Service June 05, 2019 Assessment & Plan (1) Myocarditis: Minimal residual chest pain. Hemodynamically and electrically stable. No access site complications. No heart failure on exam. Troponin has peaked. Echo with mild global LV dysfunction, ?able apical wall motion abnormality. Monitor on tele overnight. Likely home tomorrow. Continue full dose aspirin and colchicine. Would avoid steroids. Continue low dose beta-lizzy Subjective Minimal chest symptoms. No shortness of breath. No other new complaints. Tele reviewed - unremarkable. Review of Systems Review of Systems: 10 point review of systems was completed and was otherwise negative unless stated in HPI Physical Exam Physical Exam: General: Comfortable, no acute distress Eyes: Sclerae anicteric, extraocular movements intact HENT: Oropharynx clear mucous membranes moist Lungs: Clear to auscultation bilaterally, no rhonchi or wheezes Cardiac: Regular rate and rhythm, no murmurs. no rubs Abdomen: Soft, nontender, nondistended, positive bowel sounds. Neuro: Nonfocal Psych: Alert orient x3, normal affect and mood Extremities/Vascular: -- 2+ radial bilaterally - no access site complications. -- No edema Results & Data Vital Signs (Past 12 Hours) Vital Signs Temp Pulse Pulse Resp BP BP Pulse Ox 06/05/19 10:05 97.5 F L 86 16 109/76 98 06/05/19 09:05 97.5 F L 84 16 111/77 98 06/05/19 08:05 98.1 F 85 16 116/78 98 06/05/19 07:05 98.4 F 85 16 134/95 98 06/05/19 06:05 97.7 F 85 18 122/76 96 06/05/19 05:35 97.9 F 86 18 118/79 99 06/05/19 05:05 97.7 F 82 18 134/81 98 06/05/19 04:50 98.1 F 80 18 131/86 97 06/05/19 04:47 85 06/05/19 04:35 97.5 F L 82 18 112/82 95 06/05/19 04:20 98.1 F 82 18 115/80 96 06/05/19 02:45 91 H 18 147/105 H 95 06/05/19 02:44 94 H 14 146/109 H 95 06/05/19 02:30 78 14 138/103 H 100 06/05/19 02:29 82 16 136/103 H 99 06/05/19 02:07 98.4 F 84 20 142/113 H 98 PG Care Time/CCT Total # of Minutes Spent Total Time Spent with Patient: Total time spent is greater than 50% in coordination of care (as documented) at patient's floor/unit and/or counseling patient: (1) Myocarditis Chronicity: acute Infective myocarditis organism: viral Myocarditis type: infective Qualified Code(s): I40.0 - Infective myocarditis
[2019-06-05] MEDS ORDERED: KETOROLAC TROMETHAMINE 15 MG/ML VIAL IV PRN (15:30)
[2019-06-05] MEDS ORDERED: MoRPHine SULFATE 4 MG/ML 1 ML CARP\\VIAL IV PRN (15:30)
[2019-06-05] MEDS ORDERED: MoRPHine SULFATE 2 MG/ML CARP IV PRN (15:30)
--- NOTE | 2019-06-05 15:36 | History & Physical Bridge Note ---
Date of Service June 05, 2019 History & Physical Bridge Note I have examined the patient, reviewed the History & Physical and in the interval since the performance of the History & Physical I have noted the following changes of clinical significance patient doing well this morning after heart cath showed clean coronary arteries echo with EF 45-50%, global hypokinesis most likely viral myopericarditis will treat with Colchicine, aspirin patient having more intense pain this afternoon after no pain this morning ST elevations on tele which is to be expected will treat pain with Toradol, Morphine observe on tele this evening, hopeful for discharge tomorrow AM
--- NOTE | 2019-06-05 21:53 | Electrocardiogram Report ---
Test Reason : Blood Pressure : / mmHG Vent. Rate : 086 BPM Atrial Rate : 086 BPM P-R Int : 170 ms QRS Dur : 086 ms QT Int : 360 ms P-R-T Axes : 057 054 031 degrees QTc Int : 430 ms Poor data quality, interpretation may be adversely affected Normal sinus rhythm Low voltage QRS ST elevation, consider early repolarization, pericarditis, or injury Abnormal ECG No previous ECGs available Confirmed by Mohamud Weinberg ([id number]) on 06/05/2019 9:53:13 PM Referred By: REFERRED SELF Confirmed By:Mohamud Weinberg
--- NOTE | 2019-06-05 21:55 | Electrocardiogram Report ---
Test Reason : Blood Pressure : / mmHG Vent. Rate : 083 BPM Atrial Rate : 083 BPM P-R Int : 170 ms QRS Dur : 088 ms QT Int : 372 ms P-R-T Axes : 058 065 027 degrees QTc Int : 437 ms Normal sinus rhythm Low voltage QRS ST elevation, consider early repolarization, pericarditis, or injury Abnormal ECG When compared with ECG of 05-JUN-2019 02:13, No significant change Confirmed by Mohamud Weinberg ([id number]) on 06/05/2019 9:55:21 PM Referred By: REFERRED SELF Confirmed By:Mohamud Weinberg
--- NOTE | 2019-06-05 22:15 | Electrocardiogram Report ---
Test Reason : Blood Pressure : / mmHG Vent. Rate : 076 BPM Atrial Rate : 076 BPM P-R Int : 172 ms QRS Dur : 084 ms QT Int : 380 ms P-R-T Axes : 041 076 030 degrees QTc Int : 427 ms Normal sinus rhythm Low voltage QRS Early repolarization Borderline ECG When compared with ECG of 05-JUN-2019 04:10, No significant change was found Confirmed by Mohamud Weinberg ([id number]) on 06/05/2019 10:15:21 PM Referred By: REFERRED SELF Confirmed By:Mohamud Weinberg
[2019-06-06 06:49] LABS: Basophils # (auto) 0.02 K/uL (0-0.2); Basophils % (auto) 0.4 %; Eosinophils # (auto) 0.07 K/uL (0-0.5); Eosinophils % (auto) 1.3 %; Hematocrit (blood only) 37.6 % (42-52); Hemoglobin 13.3 g/dL (14.0-18.0); Immature Granulocytes # (auto) 0.01 K/uL (0.00-0.02); Immature Granulocytes % (auto) 0.2 %; Lymphocytes # (auto) 1.12 K/uL (1.2-3.4); Lymphocytes % (auto) 20.7 %; Mean Corpuscular Hemoglobin 30.8 pg (25-34); Mean Corpuscular Hgb Conc 35.4 g/dL (32-36); Mean Platelet Volume 10.1 fL (7.4-10.4); Monocytes # (auto) 0.71 K/uL (0.11-0.59); Monocytes % (auto) 13.1 %; Neutrophils # (auto) 3.49 K/uL (1.4-6.5); Neutrophils % (auto) 64.3 %; Platelet Count 197 K/uL (130-400); RDW Coefficient of Variation 12.8 % (11.5-14.5); RDW Standard Deviation 41.2 fL (36.4-46.3); Red Blood Count 4.32 M/uL (4.7-6.1); White Blood Count 5.42 K/uL (4.8-10.8)
[2019-06-06 07:24] LABS: BUN Creatinine Ratio 14.7 (10-20); Calcium 8.6 mg/dl (8.5-10.1); Creatinine Clr Calc Pharmacy 104.7 ml/min; Est GFR (African American) 98.9; Est GFR (Non-African American) 85.3; Potassium 3.8 mmol/L (3.5-5.1)
[2019-06-06] MEDS: METOPROLOL TARTRATE 25 MG TAB PO SCH (08:58)
[2019-06-06] MEDS: COLCHICINE 0.6 MG TAB PO SCH (08:58)
[2019-06-06] MEDS ORDERED: ASPIRIN 325 MG ECTAB PO SCH (09:00)
--- NOTE | 2019-06-06 09:28 | Cardiology Progress Note ---
Date of Service June 06, 2019 Assessment & Plan (1) Myocarditis: Episode of recurrent chest pain yesterday afternoon with elevation in troponin, ST changes. Chest pain free since. Hemodynamically and electrically stable. Well perfused, minimal congestion on exam. -- Increase PO antiflammatory regimen -- colchicine to BID -- ibuprofen 600mg BID. Can stop ASA --Continue low dose beta-lizzy - can transition to toprol xl 25mg daily -- Up walking halls today. If chest pain free OK home later this afternoon. Subjective Recurrent chest pain yesterday afternoon. Responded to toradol, morphine. Chest pain free overnight and this morning. No shortness of breath. Telemetry reviewed - sinus, very brief sinus pauses overnight while sleeping. Review of Systems Review of Systems: All systems reviewed & are unremarkable except as noted in HPI & below Physical Exam Physical Exam: General: Comfortable, no acute distress Lungs: Clear to auscultation except for few crackles at bases bilaterally Cardiac: Regular rate and rhythm, no murmurs, or rubs Abdomen: Soft, nontender, nondistended, positive bowel sounds. Neuro: Nonfocal Psych: Alert orient x3, normal affect and mood Extremities/Vascular: -- 2+ radial bilaterally -- No edema Results & Data Vital Signs (Past 12 Hours) Vital Signs Temp Pulse Pulse Resp BP Pulse Ox 06/06/19 07:47 75 06/06/19 07:14 98.8 F 81 18 107/72 96 06/06/19 03:09 98.1 F 68 19 104/68 96 06/06/19 00:06 72 06/05/19 23:04 99.0 F 72 20 103/66 96 PG Care Time/CCT Total # of Minutes Spent Total Time Spent with Patient: Total time spent is greater than 50% in coordination of care (as documented) at patient's floor/unit and/or counseling patient: (1) Myocarditis Chronicity: acute Infective myocarditis organism: viral Myocarditis type: infective Qualified Code(s): I40.0 - Infective myocarditis
--- NOTE | 2019-06-06 13:20 | Discharge Summary ---
Date of Service June 06, 2019 Admission HPI Per Admitting Provider 44 yo M with no significant PMH presents to [facility] with complaints of substernal CP for 24 hr duration. Presents given his inability to sleep from pain. Previously had 2 day h/o URI sxs, since resolved. Pain described as constant. 5/10. Nonradiating. Not alleviated or exacerbated by any particular position. Worse with exertion. Interestingly also worse by sitting still. 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 Pt otherwise denies SOB, palpitations, syncope or presyncope, edema. F/N/V/D. Pt with no other acute concerns or complaints. In ED, pt given NG, fentanyl 75mcg IV, ASA 324mg PO, labetalol IV, with noted improvement in sxs. EKG: Diffuse lynette/lateral ST elevations. No previous EKG's for comparison. Pertinent Labs: D-Dimer 890. K 3.4. CK 2108. Initial trop 58. Heart alert was called overhead and Dr. Garcia alerted and pt taken into [facility] to r/o ACS. Cath Report: Essentially normal coronary arteries. Elevated intracardiac filling pressure. Pt pain 2/5 after cath procedure. Family Hx: HLD-Father. No significant FHx of other cardiac issues. Social: Denies Tobacco, Alcohol, Illicit Drug use. Surgical Hx: None Principal Diagnosis Myopericarditis Discharge Exam Constitutional WD/WN, vitals as above Eyes PERRL, conjunctivae normal, anicteric sclerae ENMT external ear and nose normal, oropharynx normal Neck trachea midline, no thyromegaly Respiratory normal respiratory effort, lungs clear to auscultation Cardiovascular RRR, no murmur, no edema Gastrointestinal (Abdomen) normal bowel sounds, soft, nontender, no hepatosplenomegaly Musculoskeletal no cyanosis or clubbing, extremities motor strength 5/5 Skin no rashes, warm and dry Neurologic patellar DTR's 2+ bilat, sensation intact and PERRL, EOMI, accommodation nl, no face palsy, no dysarthria Psychiatric A+Ox3, euthymic affect Lymphatic no cervical or axillary lymphadenopathy Discharge Data Allergies Allergy/AdvReac Type Severity Reaction Status Date / Time No Known Allergies Allergy Unverified 06/05/19 02:40 Consultations 06/05/19 02:50 ED Decision to Admit Stat 06/05/19 05:29 Consult Cardiology Routine Procedures Performed Operation Date: 06/05/19 03:00 Actual Procedures p Cath, Left with Cors and Vent - Fredo Garcia MD s Cineradiography w/Routine Exam - Fredo Garcia MD Ordered Studies 06/05/19 03:05 CL Cath Imgs for PACS use only Stat Hospital Course (1) Myocarditis: likely due to recent viral illness, had GI symptoms of diarrhea troponin peaked at [address] elevations on initial EKG with sharp chest pain taken for left heart cath, clean coronary arteries treated with Colchicine, pain better with morphine vitals stable, far less pain today will d/c on Colchicine 0.6mg twice a day ibuprofen 600mg twice a day use Ultram as needed for any pain follow up with Dr. Kate and Dr. Garcia mild cardiomyopathy associated with the myocarditis will use Toprol 25mg daily volume status is normal again, follow up with PCP and cardiology (2) Elevated troponin: peaked at 70 due to myocarditis clean coronary arteries (3) Chest pain: due to myopericarditis much better use anti-inflammatory therapy with colchicine and ibuprofen Ultram for breakthrough pain Total Time Total Time Spent Total Time Spent (In Minutes): 32 minutes Total Time Includes: Examination of the Patient, Discharge Planning, Medication Reconciliation and Communication With Other Providers (Dr. Garcia) Discharge Plan Discharge Items Patient Disposition: Home - Self-Care Reason For Visit: MYOPERICARDITIS Discharge Diagnosis: Myopericarditis Condition on Discharge: Good Goals: follow up with Dr. Kate and then cardiology treat myopericarditis with ibuprofen and colchicine improve function Activity: Per Instructions section Lifting: None Bathing: No limitations Sexual Activity: When tolerated Exercise/Sports: Gradually increase as tolerated Driving/Machine Use: No limitations Weightbearing: Full weightbearing Non-emergency contact: Primary Care Provider and Sanitary Engineer Call non-emergency contact if: you have any medication questions, your symptoms worsen, your pain is worsening and you have a fever Follow-up/Referrals: Fredo Garcia MD [Physician] - 06/27/19 1:10 pm (Please, follow up at [facility] Cardiology Office with Dr. Garcia' associate, Monalisa Fraser PA-C, on TuesdayJune 27 at 1:30 pm (arrive 1:10 pm). *The office is located in [address] of [facility], next to this hospital. If you need to change this appointment, call their office at [phone].) Cherelle Kate MD [Physician] - 06/08/19 11:10 am (Please, follow up at [facility] with Dr. Cherelle Kate on TuesdayJune 08 at 11:30 am (arrive 11:10 am). *This will establish you with a primary care provider. The office is located at [address] [facility] in [place]. If you need to cancel/change this appointment, call the office at [phone].) Diet: Heart Healthy Addtl Attending Provider Instructions: Medications: - COLCHICINE: 0.6mg twice a day, anti-inflammatory - IBUPROFEN: 600mg twice a day, anti-inflammatory - ULTRAM: take 50mg every 4 hours as needed for any pain Myopericarditis EKG with clear evidence of pericarditis, fits with clinical picture of viral illness and chest pain echocardiogram shows slightly reduced ejection fraction suggesting myocarditis as well left heart cath showed clean coronary arteries mainstay of treatment is anti-inflammatories Colchicine 0.6mg twice a day for 3-4 weeks then likely once a day for 2 more months Ibuprofen 600mg twice a day for 2-3 weeks take with food use Ultram as needed for any pain, pain may persist on and off for the next week Toprol 25mg daily, start tomorrow morning follow up with Dr. Kate on Tuesday follow up with Dr. Garcia on 06/27 Pending Studies at Discharge: Yes Studies:: serology studies on viruses Stand-Alone Forms: Call Back Authorization, My [facility], Smoking Cessation Medications and DC Order Prescriptions: New colchicine [Colcrys] 0.6 mg Tablet 0.6 mg PO BID 30 Days Qty: 60 RF: 2 tramadol 50 mg tablet 50 mg PO Q4H PRN (Reason: pain) Qty: 30 RF: 0 ibuprofen 200 mg tablet 600 mg PO BID Qty: 30 RF: 0 metoprolol succinate [Toprol XL] 25 mg tablet extended release 24 hr 25 mg PO DAILY Qty: 30 RF: 2 No Action No Known Home Medications RF: 0 Discharge Orders: Discharge Order (Routine); Ordered 06/06/19 Ordered By: Padilla Finley Admission Data Admit Date/Time: 06/05/19 04:08 Attending Provider: Padilla Finley Admit Provider: Fredo Garcia Primary Care Provider: PCP,NO Other Providers: Fredo Garcia ; Mohamud Weinberg
--- NOTE | 2019-06-06 22:53 | Electrocardiogram Report ---
Test Reason : Blood Pressure : / mmHG Vent. Rate : 067 BPM Atrial Rate : 067 BPM P-R Int : 170 ms QRS Dur : 082 ms QT Int : 388 ms P-R-T Axes : 044 073 038 degrees QTc Int : 409 ms Normal sinus rhythm Low voltage QRS Diffuse ST elevation, consider pericarditis Abnormal ECG When compared with ECG of 05-JUN-2019 06:25, ST more elevated in Anterolateral leads Confirmed by Mohamud Weinberg ([id number]) on 06/06/2019 10:54:06 PM Referred By: REFERRED SELF Confirmed By:Mohmaud Weinberg
--- NOTE | 2019-06-07 04:57 | Billing Data ---
Date of Service June 07, 2019 Coding Level of Care Code 34187 Initial Inpt Care Lvl 3
== END 2019-06-06 14:19 | disposition home or self-care (01) | DRG 287 ==
LOC: ED 02:02 → CC 03:13 → 2S 04:08 → SUATTDRO 04:08